=== PATIENT | female | born 1965 ===

== ENCOUNTER 2021-08-19 17:27 | Emergency (ER) | payer OTHER, MEDICAID, SELFPAY ==
[2021-08-19] VITALS (8 sets, daily range): BP systolic 124–156; BP diastolic 66–75; PULSE 66–86; RESP 18; TEMP 36.7; O2SAT 94–100; BMI 28.3
--- NOTE | 2021-08-19 17:35 | DI.RAD.S_ITS ---
PROCEDURE: XR CHEST 1V INDICATIONS: chest pain TECHNIQUE: One view of the chest was acquired. COMPARISON: None. FINDINGS: Surgical changes and devices: Partially visualized cervical spine fixation hardware. Lungs and pleura: Lungs are clear. No pleural effusions or pneumothorax. Mediastinum: Mediastinal contours appear normal. Heart size is normal. Bones and chest wall: No suspicious bony lesions. Overlying soft tissues appear unremarkable. IMPRESSION: No acute cardiopulmonary disease process. Dictated by: Denise Webb MD, PhD on 08/19/2021 at 17:27 Approved by: Denise Webb MD, PhD on 08/19/2021 at 17:27
--- NOTE | 2021-08-19 17:54 | DI.RAD.S_ITS ---
PROCEDURE: XR SHOULDER RT MIN 2V INDICATIONS: worsening pain TECHNIQUE: 3 views of the shoulder were acquired. COMPARISON: None. FINDINGS: Bones: No fractures or dislocations. There is mild acromioclavicular joint degeneration. There is slight lateral downsloping of the acromion. No suspicious bony lesions. Visualized ribs appear intact. Soft tissues: No suspicious soft tissue calcifications. IMPRESSION: 1. Mild acromioclavicular joint degeneration. Dictated by: Jose Aguero M.D. on 08/19/2021 at 18:29 Approved by: Jose Aguero M.D. on 08/19/2021 at 18:30
[2021-08-19 17:57] LABS: Add Manual Diff / Slide Review NO; Basophils Absolute Auto 0 /uL (0-100); Basophils Percent Auto 0.6 % (0-2); Eosinophils Absolute Auto 300 /uL (0-450); Eosinophils Percent Auto 3.8 % (2-4); Hematocrit 35.5 % (36-46); Hemoglobin 12.2 g/dL (12.0-16.0); Lymphocytes Absolute Auto 2600 /uL (1100-4500); Lymphocytes Percent Auto 36.1 % (25-40); Mean Corpuscular HGB Conc 34.5 % (30-36); Mean Corpuscular Hemoglobin 30.3 PG (26-34); Monocytes Absolute Auto 500 /uL (0-900); Monocytes Percent Auto 7.7 % (3-14); Neutrophils Absolute Auto 3700 /uL (1500-7000); Neutrophils Percent Auto 51.8 % (50-75); Platelet Count 214 X10^3/uL (150-400); Red Blood Cell Count 4.04 X10^6/uL (4.0-5.2); Red Cell Distribution Width 13.3 % (11.6-14.8); White Blood Cell Count 7.2 X10^3/uL (4.5-11.0)
--- NOTE | 2021-08-19 17:59 | ED.EXTPRO ---
HPI - Extremity Problem General Chief complaint: Extremity Problem,Nontraumatic Stated complaint: Rt Arm Numbness and Pain,Dizzy Time Seen by Provider: 08/19/21 17:48 Mode of arrival: Ambulatory History of Present Illness HPI Narrative: Patient is a 55-year-old female history of rheumatoid arthritis, chronic ongoing back pain, presenting with on going right shoulder pain with numbness in her fingertips. She says it hurts when she moves and rolls over in bed. It is progressively getting worse. She is able to lift put. She has had some tingling in the thumb index middle and ring finger. He feels like her right hand is getting weaker. She occasionally has dizziness when she returns to the right. No lower extremity weakness. She has been taking Aleve she is chronically on Dilaudid and morphine which she says is not helping. She denies any chest pain palpitations dizziness lightheadedness. Related Data Previous Rx's Medication Instructions Recorded prednisone 20 mg tablet 20 mg PO DAILY #5 tab 08/19/21 Allergies Allergy/AdvReac Type Severity Reaction Status Date / Time azithromycin AdvReac Verified 08/19/21 18:13 Review of Systems Review of Systems Narrative: GENERAL: Denies chills, fatigue, malaise, fever, sweats, travel HEENT: Denies sinus pain, ear pain, sore throat, difficulty swallowing, neck pain RESPIRATORY: Denies dyspnea, cough, wheezing, hemoptysis, sputum. CARDIOVASCULAR: Denies chest pain, palpitations, orthopnea, edema GASTROINTESTINAL: Denies nausea, vomiting, abdominal pain, diarrhea, constipation, melena. : Denies dysuria, frequency, incontinence, hematuria, urinary retention, flank pain. MUSCULOSKELETAL: See HPI SKIN: No rash, no erythema, no pruritus NEUROLOGIC: Denies weakness, dizziness, headache, numbness, change in speech, confusion PSYCHIATRIC: No concerning psychosocial issues. 12 point review of systems is negative except for those stated above and HPI Patient History Medical History (Updated 08/20/21 @ 01:04 by Kandis Newby DO) Rheumatoid arthritis Social History Smoking Status: Never smoker Smoking Status: Never smoker alcohol intake frequency: 0-2 drinks per day Substance Use Type: does not use Exam Initial Vital Signs Initial Vital Signs: Vital Signs Temperature 98.1 F 08/19/21 17:52 Pulse Rate 82 08/19/21 17:52 Respiratory Rate 18 08/19/21 17:52 Blood Pressure 156/75 H 08/19/21 17:52 Pulse Oximetry 100 08/19/21 17:52 GENERAL: Alert well-appearing 55-year-old female HEENT: Head atraumatic,EOMI, pupils reactive, face symmetric, moist mucous membranes CARDIOVASCULAR: Regular rate and rhythm without murmurs, rubs or gallops. RESPIRATORY: Breath sounds equal bilaterally, no wheezes rales or rhonchi. ABDOMEN: Soft, nontender. Normoactive bowel sounds all 4 quadrants. No guarding or rebound. EXTREMITIES: Normal range of motion, no clubbing or edema. Neurovascularly intact Right shoulder is tender to palpation actually has full abduction adduction flexion extension. No significant swelling no erythema. Sensation and deltoid intact. right hand weakness. negative tinnels sign NEUROLOGICAL: Alert and oriented x4.Normal gait and speech. Cranial nerves II through XII grossly intact. Good [id number], good [id number], strength equal bilaterally, no dysarthria or aphasia, sensation in tact to soft touch bilaterally, no visual changes, no facial droop SKIN: Warm, dry, no laceration, no petechiae, no rashes or lesions. Scores NIH Stroke Scale Level of Conciousness: Alert, keenly responsive Ask month/age: Answers both questions correctly. Open/close eyes, close hand: Performs both tasks correctly Best gaze horizontal: Normal Visual talavera: No visual loss Facial palsy: Normal symetrical movement Left arm drift: No drift for full 10 sec Right arm drift: No drift for full 10 sec Left leg drift: No drift for full 5 sec Right leg drift: No drift for full 5 sec Limb ataxia: Absent Sensory on face/arms/legs: Normal, no sensory loss Best language: No aphasia, normal Dysarthria: Normal Extinction or inattention: No abnormality Total NIH Stroke scale score: 0 Course Orders Ordered: ED Orders 08/19/21 17:35 XR chest 1V Stat EKG-12 Lead Stat 08/19/21 17:49 Complete Blood Count AUTO DIFF Stat Comprehensive Metabolic Panel Stat Lipase Stat Magnesium Stat Troponin & CK Cardiac Panel Stat 08/19/21 17:54 XR shoulder RT min 2V Stat 08/19/21 18:14 Partial Thromboplastin Time Stat Prothrombin Time INR Stat 08/19/21 19:32 CT head/brain wo con Stat Discontinued Medications Hydromorphone HCl (Hydromorphone 1 Mg Inj) 1 mg IV NOW ONE Stop: 08/19/21 19:33 Last Admin: 08/19/21 19:55 Dose: 1 mg Documented by: MARTINE Ketorolac Tromethamine (Ketorolac 30 Mg/Ml Vial) 30 mg IV NOW ONE Stop: 08/19/21 17:55 Last Admin: 08/19/21 18:14 Dose: 30 mg Documented by: MERRITT Vital Signs Vital signs: Vital Signs - 8 hr 08/19/21 17:52 08/19/21 18:18 08/19/21 18:55 Temperature 98.1 F Pulse Rate 82 67 69 Respiratory Rate 18 18 Blood Pressure 156/75 H 139/72 Pulse Oximetry 100 99 100 08/19/21 19:00 08/19/21 19:30 08/19/21 19:35 Temperature Pulse Rate 66 86 70 Respiratory Rate Blood Pressure 156/70 H Pulse Oximetry 99 94 100 08/19/21 19:45 08/19/21 20:00 Temperature Pulse Rate 68 67 Respiratory Rate Blood Pressure 135/66 124/69 Pulse Oximetry 100 100 MDM - Extremity (Nontraumatic) Lab Data Result diagrams: 08/19/21 17:49 08/19/21 17:49 Labs: Lab Results 08/19/21 08/19/21 08/19/21 Range/Units 17:49 17:49 18:14 WBC 7.2 (4.5-11.0) X10^3/uL RBC 4.04 (4.0-5.2) X10^6/uL Hgb 12.2 (12.0-16.0) g/dL Hct 35.5 L (36-46) % MCV 88.0 (80-100) fL MCH 30.3 (26-34) PG MCHC 34.5 (30-36) % RDW 13.3 (11.6-14.8) % Plt Count 214 (150-400) X10^3/uL Neut % (Auto) 51.8 (50-75) % Lymph % (Auto) 36.1 (25-40) % [place] % (Auto) 7.7 (3-14) % Eos % (Auto) 3.8 (2-4) % Baso % (Auto) 0.6 (0-2) % Neut # (Auto) 3700 (3604-8718) /uL Lymph # (Auto) 2600 (9351-2548) /uL [place] # (Auto) 500 (0-900) /uL Eos # (Auto) 300 (0-450) /uL Baso # (Auto) 0 (0-100) /uL PT 12.2 (10.1-12.7) SECONDS INR 1.1 (0.9-1.3) APTT 35 (26.4-36.2) SECONDS Sodium 137 (137-145) mmol/L Potassium 4.6 (3.4-5.1) mmol/L Chloride 109 H (98-107) mmol/L Carbon Dioxide 21 L (22-32) mmol/L BUN 18 H (7-17) mg/dL Creatinine 0.62 (0.52-1.04) mg/dL Estimated GFR > 60.0 (>60) mL/min BUN/Creatinine Ratio 29.0 H (6-22) Glucose 91 (70-100) mg/dL Calcium 8.8 (8.4-10.2) mg/dL Magnesium 2.2 (1.6-2.3) mg/dL Total Bilirubin 0.5 (0.2-1.3) mg/dL AST 34 (14-36) IU/L ALT 13 (<35) IU/L Alkaline Phosphatase 77 (38-126) U/L Total Creatine Kinase 122 (30-135) U/L CK-MB (CK-2) 1.74 (<2.37) ng/mL CK-MB (CK-2) Rel Index 1.4 L (1.5-5.0) % Troponin I < 0.012 (0.01-0.034) ng/mL Total Protein 7.5 (6.3-8.2) g/dL Albumin 4.2 (3.5-5.0) g/dL Globulin 3.3 (1.7-4.1) g/dL Albumin/Globulin Ratio 1.3 (1.0-2.8) Lipase 88 (23-300) U/L Imaging Data CT scan - head: Radiologist's Impression: PROCEDURE:? CT HEAD/BRAIN WO CON ? INDICATIONS:? right hand weakness x 2 weeks ? TECHNIQUE:? Noncontrast 4.5 mm thick angled axial sections acquired from the foramen magnum to the vertex, with coronal and sagittal reformats.? For radiation dose reduction, the following was used:? automated exposure control, adjustment of mA and/or kV according to patient size.? ? COMPARISON:? None. ? FINDINGS:? Image quality:? Excellent.? ? CSF spaces:? Basal cisterns are patent.? No extra-axial fluid collections.? Ventricles are normal in size and shape.? ? Brain:? No midline shift.? No intracranial masses or hemorrhage.? Trejo-white matter interface is normal.? ? Skull and face:? Calvarium and visualized facial bones are intact, without suspicious lesions.? ? Sinuses:? Visualized sinuses and mastoids are clear.? ? IMPRESSION:? No acute intracranial bleed, midline shift or mass effect.? No definite CT evidence of acute infarction. ? ? Dictated by: Sg Simms M.D. on 08/19/2021 at 19:59 ? Extremity x-ray #1: Radiologist's Impression: PROCEDURE:? XR SHOULDER RT MIN 2V ? INDICATIONS:? worsening pain ? TECHNIQUE:? 3 views of the shoulder were acquired.? ? COMPARISON:? None. ? FINDINGS:? ? Bones:? No fractures or dislocations.? There is mild acromioclavicular joint degeneration.? There is slight lateral downsloping of the acromion.? No suspicious bony lesions.? Visualized ribs appear intact.? ? Soft tissues:? No suspicious soft tissue calcifications.? ? IMPRESSION:? ? 1. Mild acromioclavicular joint degeneration.? ? ? Dictated by: Jose Aguero M.D. on 08/19/2021 at 18:29 ? ? Chest x-ray: Radiologist's Impression: PROCEDURE:? XR CHEST 1V ? INDICATIONS:? chest pain ? TECHNIQUE:? One view of the chest was acquired.? ? COMPARISON:? None. ? FINDINGS:? ? Surgical changes and devices:? Partially visualized cervical spine fixation hardware.? ? Lungs and pleura:? Lungs are clear.? No pleural effusions or pneumothorax.? ? Mediastinum:? Mediastinal contours appear normal.? Heart size is normal.? ? Bones and chest wall:? No suspicious bony lesions.? Overlying soft tissues appear unremarkable.? ? IMPRESSION:? No acute cardiopulmonary disease process. ? ? Dictated by: Denise Webb MD, PhD on 08/19/2021 at 17:27 ? ECG Data Interpretation: Normal sinus rhythm rate 73 MT interval 146 QRS [address] changes MDM Narrative Medical decision making narrative: Patient does have pinpoint tenderness in her shoulder. It is worse with movement. This is more consistent with a musculoskeletal issue however she does have significant right hand weakness. Head CT and stroke workup is negative. Hand may be related to shoulder. He says the hand weakness has progressively gotten worse over last couple weeks as well. It Is no new day. Really complaining of shoulder pain. She is chronically on Dilaudid and morphine. She has been taking Aleve with out significant help. Will give her short course of prednisone and recommend outpatient follow-up Discharge Plan Departure Patient Disposition: Home Clinical Impression: Arthritis Instructions: DI for Osteoarthritis, DI for Rheumatoid Arthritis Activity Restrictions/Additional Instructions: *You have been diagnosed with arthritis *What to do: At this time I recommended outpatient MRI shoulder. I think this is causing right hand weakness. *Continue to take medications as directed Prednisone 20 mg once a day for 5 days *Follow up with your primary care provider in 2-3 days or call [phone] *Return to ER if you should have increasing pain numbness tingling weakness headache or any new, worsening or concerning symptoms Prescriptions: New prednisone 20 mg tablet 20 mg PO DAILY Qty: 5 0RF
[2021-08-19] MEDS: KETOROLAC 30 MG/ML VIAL IV (18:14)
[2021-08-19 18:17] LABS: Alanine Aminotransferase 13 IU/L (<35); Albumin 4.2 g/dL (3.5-5.0); Albumin Globulin Ratio 1.3 (1.0-2.8); Alkaline Phosphatase 77 U/L (38-126); Aspartate Aminotransferase 34 IU/L (14-36); Bilirubin Total 0.5 mg/dL (0.2-1.3); Blood Urea Nitrogen 18 mg/dL (7-17); Calcium 8.8 mg/dL (8.4-10.2); Carbon Dioxide 21 mmol/L (22-32); Chloride 109 mmol/L (98-107); Creatine Kinase 122 U/L (30-135); Estimated Glomerular Filt Rate > 60.0 mL/min (>60); Globulin 3.3 g/dL (1.7-4.1); Glucose 91 mg/dL (70-100); Lipase 88 U/L (23-300); Magnesium 2.2 mg/dL (1.6-2.3); Sodium 137 mmol/L (137-145); Total Protein 7.5 g/dL (6.3-8.2)
[2021-08-19 18:19] LABS: HEMOLYSIS 66 (0-50)
[2021-08-19 18:20] LABS: Potassium 4.6 mmol/L (3.4-5.1)
[2021-08-19 18:28] LABS: Troponin I < 0.012 ng/mL (0.01-0.034)
[2021-08-19 18:32] LABS: CKMB % Relative Index 1.4 % (1.5-5.0); Creatine Kinase MB 1.74 ng/mL (<2.37)
[2021-08-19 18:35] LABS: INR 1.1 (0.9-1.3); Prothrombin Time 12.2 SECONDS (10.1-12.7)
[2021-08-19 18:37] LABS: PTT Partial Thromboplastin Tim 35 SECONDS (26.4-36.2)
--- NOTE | 2021-08-19 19:32 | DI.CT.S_ITS ---
PROCEDURE: CT HEAD/BRAIN WO CON INDICATIONS: right hand weakness x 2 weeks TECHNIQUE: Noncontrast 4.5 mm thick angled axial sections acquired from the foramen magnum to the vertex, with coronal and sagittal reformats. For radiation dose reduction, the following was used: automated exposure control, adjustment of mA and/or kV according to patient size. COMPARISON: None. FINDINGS: Image quality: Excellent. CSF spaces: Basal cisterns are patent. No extra-axial fluid collections. Ventricles are normal in size and shape. Brain: No midline shift. No intracranial masses or hemorrhage. Trejo-white matter interface is normal. Skull and face: Calvarium and visualized facial bones are intact, without suspicious lesions. Sinuses: Visualized sinuses and mastoids are clear. IMPRESSION: No acute intracranial bleed, midline shift or mass effect. No definite CT evidence of acute infarction. Dictated by: Sg Simms M.D. on 08/19/2021 at 19:59 Approved by: Sg Simms M.D. on 08/19/2021 at 20:00
[2021-08-19] MEDS: HYDROMORPHONE 1 MG INJ IV (19:55)
== END 2021-08-19 20:28 | disposition home or self-care (01) ==
PROVIDERS: Emergency Medicine; Emergency Provider Emergency Medicine
DX: M19.011 Primary osteoarthritis, right shoulder (principal)
CPT/HCPCS: 36415; 70450; 71045; 73030; 80053; 82550; 82553; 83690; 83735; 84484; 85025; 85610; 85730; 93005; 93010; 96374; 96375; 99284; J1170; J1885